=== PATIENT | female | born 1955 | race Hispanic/Latino ===

== ENCOUNTER 2024-07-15 06:08 | Observation (INO) | payer MEDICARE ==
[2024-07-14 09:52] LABS: BASOPHILS # (AUTO) 0.1 (0.0-0.1); BASOPHILS % 0.9 % (0.0-1.0); EOSINOPHILS # (AUTO) 0.2 (0.0-0.4); EOSINOPHILS % 3.1 % (0.0-6.0); HEMATOCRIT 41.7 % (34.2-44.1); HEMOGLOBIN 11.5 g/dL (12.0-16.0); LYMPHOCYTES # (AUTO) 1.3 (1.0-3.2); LYMPHOCYTES % 19.3 % (18.0-39.1); MEAN CORPUSCULAR HEMOGLOBIN 26.6 pg (28-32); MEAN CORPUSCULAR HGB CONC 27.6 g/dL (31-35); MEAN CORPUSCULAR VOLUME 96.3 fL (81-99); MONOCYTES # (AUTO) 0.4 (0.2-0.8); MONOCYTES % 6.1 % (4.4-11.3); NEUTROPHILS # (AUTO) 4.8 (2.1-6.9); NEUTROPHILS % 70.2 % (38.7-80.0); PLATELET COUNT 311 x10e3/uL (140-360); RED BLOOD COUNT 4.33 x10e6/uL (3.6-5.1); RED CELL DISTRIBUTION WIDTH 15.5 % (11.7-14.4); WHITE BLOOD COUNT 6.88 x10e3/uL (4.8-10.8)
[~2024-07-15] VITALS: Ht 162.6 cm; Wt 88.5 kg
[~2024-07-15 06:08] MED LIST: ACETAMINOPHEN120 MG RC; ASPIRIN81 MG PO; FLECTOR1 EACH TD; IRON; OMEPRAZOLE40 MG PO; SPIRONOLACTONE25 MG PO
[2024-07-15] MEDS: CEFAZOLIN SODIUM 2 GM ONE (06:48)
[2024-07-15] MEDS: CELECOXIB 200 MG CAP ONE (06:48)
[2024-07-15] MEDS: GABAPENTIN 300 MG CAP ONE (06:48)
[2024-07-15] MEDS: LACTATED RINGER'S 1,000 ML ONE (06:48)
[2024-07-15] MEDS: DEXAMETHASONE SOD PHOS 10 MG/1 ML VIAL ONE (06:48)
[2024-07-15] MEDS ORDERED: TRANEXAMIC ACID 20 ML ONE (08:06)
[2024-07-15] MEDS ORDERED: Vancomycin IV 500 MG ONE (08:06)
[2024-07-15] MEDS ORDERED: SODIUM CHLORIDE 0.9% 500ML 500 ML ONE (08:06)
[2024-07-15] MEDS ORDERED: DIPHENHYDRAMINE HCL INJ 50 MG/ML VIAL IV PRN (10:00)
[2024-07-15] MEDS ORDERED: ONDANSETRON HCL INJ 2MG/ML 2ML 2 MG/ML VIAL IV PRN (10:00)
[2024-07-15] MEDS ORDERED: DOCUSATE SODIUM 100 MG CAP PO PRN (10:00)
[2024-07-15] MEDS ORDERED: FLUMAZENIL 0.5MG/ 5ML VIAL ONE (11:18)
[2024-07-15] MEDS: ALBUTEROL/IPRATROPIUM 3 ML NEB ONE (11:42)
[2024-07-15] MEDS ORDERED: MIDAZOLAM HCL 2 MG/2 ML VIAL ONE (12:55)
[2024-07-15] MEDS ORDERED: FENTANYL CITRATE/PF 100MCG/2 ML INJ ONE ×2 (12:55→13:03)
[2024-07-15 14:21] VITALS: BP 112/60; PULSE 76; RESP 20; TEMP 97.3; O2SAT 97
[2024-07-15 16:11] VITALS: BP 112/60; PULSE 76; RESP 20; TEMP 97.3; O2SAT 97
[2024-07-15 16:22] LABS: BASOPHILS % 0.1 % (0.0-1.0); HEMATOCRIT 31.6 % (34.2-44.1); HEMOGLOBIN 9.1 g/dL (12.0-16.0); LYMPHOCYTES # (AUTO) 0.6 (1.0-3.2); LYMPHOCYTES % 4.6 % (18.0-39.1); MEAN CORPUSCULAR HEMOGLOBIN 26.6 pg (28-32); MEAN CORPUSCULAR HGB CONC 28.8 g/dL (31-35); MEAN CORPUSCULAR VOLUME 92.4 fL (81-99); MONOCYTES # (AUTO) 0.1 (0.2-0.8); MONOCYTES % 0.8 % (4.4-11.3); NEUTROPHILS # (AUTO) 12.8 (2.1-6.9); NEUTROPHILS % 93.8 % (38.7-80.0); PLATELET COUNT 337 x10e3/uL (140-360); RED BLOOD COUNT 3.42 x10e6/uL (3.6-5.1); RED CELL DISTRIBUTION WIDTH 14.9 % (11.7-14.4); WHITE BLOOD COUNT 13.61 x10e3/uL (4.8-10.8)
[2024-07-15 16:47] LABS: ANION GAP 14.6 mmol/L (8-16); CALCIUM 8.6 mg/dL (8.4-10.2); CREATININE, SERUM 0.8 mg/dL (0.57-1.11); POTASSIUM 4.6 mmol/L (3.5-5.1)
[2024-07-15] MEDS: SODIUM CHLORIDE 0.9% 1000ML 1,000 ML IV SCH (16:53)
[2024-07-15] MEDS: ASPIRIN 325 MG TAB PO SCH (16:53)
[2024-07-15] MEDS: CELECOXIB 200 MG CAP PO SCH (16:53)
[2024-07-15] MEDS ORDERED: ONDANSETRON HCL INJ 2MG/ML 2ML 2 MG/ML VIAL ONE (17:36)
[2024-07-15] MEDS ORDERED: SEVOFLURANE INHAL SOLN 250 ML PEN BTL ONE (17:36)
[2024-07-15] MEDS ORDERED: PROPOFOL IV EMULSION 10 MG/ML 20 ML VIAL ONE (17:36)
[2024-07-15] MEDS ORDERED: ROCURONIUM BROMIDE 10 MG/ML 5ML VIAL IV ONE (17:36)
[2024-07-15] MEDS ORDERED: SUCCINYLCHOLINE CHLORIDE 20 MG/ML 10ML VIAL ONE (17:36)
[2024-07-15] MEDS ORDERED: DEXAMETHASONE SOD PHOS INJ 4 MG/ML SDV ONE (17:36)
[2024-07-15] MEDS ORDERED: LIDOCAINE HCL 2% LOCAL INJ 5 ML SDV VIAL INJ ONE (17:36)
[2024-07-15] MEDS ORDERED: EPINEPHRINE HCL 1:1000 1ML 1 MG/ML AMP ONE (17:57)
[2024-07-15] MEDS ORDERED: ROPIVACAINE 0.5% 5 MG/ML 30 ML SDV ONE (17:57)
[2024-07-15] MEDS: ACETAMINOPHEN 1000 MG/100 ML IV PRN (19:11)
[2024-07-15 20:00] VITALS: BP 110/65; PULSE 84; RESP 20; TEMP 98.4; O2SAT 100
[2024-07-15] MEDS: NALOXONE HCL INJ 0.4 MG/ML AMP ONE (20:02)
[2024-07-15] MEDS: ROPIVACAINE 246.25 MG, EPINEPHRINE HCL 1:1000 1ML 0.5 MG, CLONIDINE HCL 0.08 MG, KETORO... INJ ONE (20:02)
[2024-07-16] VITALS: BP_SYST 137; BP_SYST 97; BP_DIAS 54; BP_DIAS 78; PULSE 105; PULSE 94; RESP 16; RESP 19; TEMP 98.7; TEMP 98.9; O2SAT 100; O2SAT 99
[2024-07-16 05:59] VITALS: BP 117/61; PULSE 84; RESP 18; TEMP 98.6; O2SAT 100
[2024-07-16 06:00] LABS: HEMATOCRIT 27.5 % (34.2-44.1)
[2024-07-16 08:29] VITALS: BP 121/66; PULSE 73; RESP 17; TEMP 98; O2SAT 100
[2024-07-16] MEDS: HYDROCODONE/APAP 5MG-325MG TAB PO PRN (09:23)
[2024-07-16] MEDS: SPIRONOLACTONE 25 MG TAB PO SCH (09:23)
[2024-07-16] MEDS: PANTOPRAZOLE SOD 40 MG TABEC PO SCH (09:23)
[2024-07-16] MEDS: ASPIRIN 81 MG CHEW TAB PO SCH (09:30)
[2024-07-16 12:08] VITALS: BP 105/54; PULSE 86; RESP 17; TEMP 98.5; O2SAT 93
[2024-07-16] MEDS: HYDROCODONE/APAP 7.5MG-325MG 1 EA TAB PO PRN (13:04)
[2024-07-16] MEDS ORDERED: ASPIRIN81 MG PO (13:29)
== END 2024-07-16 15:00 | disposition home health service (06) ==
LOC: OR 06:08 → PACU V 12:22 → MED/SURG3 14:27
PROVIDERS: ADMIT Specialist; ATTEND Specialist
DX: M17.11 Unilateral primary osteoarthritis, right knee (principal); K21.9 Gastro-esophageal reflux disease without esophagitis; E66.01 Morbid (severe) obesity due to excess calories; Z68.33 Body mass index [BMI] 33.0-33.9, adult; D64.9 Anemia, unspecified; R94.31 Abnormal electrocardiogram [ECG] [EKG]; Z01.812 Encounter for preprocedural laboratory examination; Z01.810 Encounter for preprocedural cardiovascular examination; Z79.899 Other long term (current) drug therapy; Z79.82 Long term (current) use of aspirin
CPT/HCPCS: 27447; 36415 ×3; 71045; 73560; 80048; 85014; 85018; 85025 ×2; 86850; 86900; 93005; 96361 ×2; 97116; 97161; 97530 ×2; C1713 ×2; C1776 ×3; G0378 ×2; J0131; J0171; J0330; J0690 ×2; J1100 ×2; J1885; J2001; J2250; J2310; J2405; J2704; J2795; J3010; J3370; J7030; J7040; J7121; S0164

== ENCOUNTER 2024-12-02 08:11 | Observation (INO) | payer MEDICARE ==
[2024-12-01 12:25] LABS: BASOPHILS # (AUTO) 0.1 (0.0-0.1); BASOPHILS % 1.2 % (0.0-1.0); EOSINOPHILS # (AUTO) 0.3 (0.0-0.4); EOSINOPHILS % 4.1 % (0.0-6.0); HEMATOCRIT 36.2 % (34.2-44.1); HEMOGLOBIN 10.8 g/dL (12.0-16.0); LYMPHOCYTES # (AUTO) 0.9 (1.0-3.2); LYMPHOCYTES % 13.7 % (18.0-39.1); MEAN CORPUSCULAR HEMOGLOBIN 28.1 pg (28-32); MEAN CORPUSCULAR HGB CONC 29.8 g/dL (31-35); MEAN CORPUSCULAR VOLUME 94.3 fL (81-99); MONOCYTES # (AUTO) 0.4 (0.2-0.8); MONOCYTES % 6.3 % (4.4-11.3); NEUTROPHILS # (AUTO) 5.1 (2.1-6.9); NEUTROPHILS % 74.3 % (38.7-80.0); PLATELET COUNT 356 x10e3/uL (140-360); RED BLOOD COUNT 3.84 x10e6/uL (3.6-5.1); RED CELL DISTRIBUTION WIDTH 13.4 % (11.7-14.4); WHITE BLOOD COUNT 6.81 x10e3/uL (4.8-10.8)
[2024-12-01 13:04] LABS: ANION GAP 14.8 mmol/L (8-16); CALCIUM 9.2 mg/dL (8.4-10.2); CREATININE, SERUM 0.74 mg/dL (0.57-1.11); POTASSIUM 4.8 mmol/L (3.5-5.1)
[~2024-12-02] VITALS: Ht 160 cm; Wt 87.3 kg
[~2024-12-02 08:11] MED LIST changes: +FERROUS SULFAT325 MG PO; +ROPIVACAINE 123 MG, EPINEPHRINE HCL 1:1000 1ML 0.25 MG, CLONIDINE HCL 0.04 MG, KETOROLA... INJ ONE; +ROPIVACAINE/EPI/CLONIDINE/KET 50 ML SYRINGE INJ ONE
[2024-12-02] MEDS: DEXAMETHASONE SOD PHOS 10 MG/1 ML VIAL ONE (08:38)
[2024-12-02] MEDS: CEFAZOLIN SODIUM 2 GM ONE (08:39)
[2024-12-02] MEDS: LACTATED RINGER'S 1,000 ML ONE (08:39)
[2024-12-02] MEDS: CELECOXIB 200 MG CAP ONE (08:40)
[2024-12-02] MEDS: GABAPENTIN 300 MG CAP ONE (08:41)
[2024-12-02] MEDS ORDERED: SEVOFLURANE INHAL SOLN 250 ML PEN BTL ONE (10:11)
[2024-12-02] MEDS ORDERED: FENTANYL CITRATE/PF 100MCG/2 ML INJ ONE (10:11)
[2024-12-02] MEDS ORDERED: ACETAMINOPHEN 1000 MG/100 ML 100 ML IV ONE (10:12)
[2024-12-02] MEDS ORDERED: PROPOFOL IV EMULSION 10 MG/ML 20 ML VIAL ONE ×2 (10:12→11:44)
[2024-12-02] MEDS ORDERED: FAMOTIDINE 20 MG/2 ML VIAL IV ONE (12:12)
[2024-12-02] MEDS ORDERED: ONDANSETRON HCL INJ 2MG/ML 2ML 2 MG/ML VIAL ONE (12:12)
[2024-12-02] MEDS ORDERED: ONDANSETRON HCL INJ 2MG/ML 2ML 2 MG/ML VIAL IV PRN (12:45)
[2024-12-02] MEDS ORDERED: ACETAMINOPHEN 650 MG SUPP PR PRN (12:45)
[2024-12-02] MEDS ORDERED: DIPHENHYDRAMINE HCL INJ 50 MG/ML VIAL IV PRN (12:45)
[2024-12-02] MEDS ORDERED: DOCUSATE SODIUM 100 MG CAP PO PRN (12:45)
[2024-12-02] MEDS ORDERED: HYDROCODONE/APAP 7.5MG-325MG 1 EA TAB PO PRN (12:45)
[2024-12-02] MEDS: CELECOXIB 100 MG CAP PO SCH (17:00)
[2024-12-02] MEDS: ASPIRIN 325 MG TAB PO SCH (17:00)
[2024-12-02 17:23] VITALS: BP 111/62; PULSE 85; RESP 20; TEMP 97.5; O2SAT 100
[2024-12-02] MEDS: ROPIVACAINE/EPI/CLONIDINE/KET 50 ML SYRINGE INJ ONE ×2 (18:02)
[2024-12-02] MEDS: HYDROCODONE/APAP 7.5MG-325MG 1 EA TAB ONE (18:02)
[2024-12-02 18:05] VITALS: BP 111/62; PULSE 85; RESP 20; TEMP 97.5; O2SAT 100
[2024-12-02 18:15] VITALS: BP 111/62; PULSE 85; RESP 20; TEMP 97.5; O2SAT 100
[2024-12-02] MEDS: SODIUM CHLORIDE 0.9% 1000ML 1,000 ML IV SCH (18:54)
[2024-12-02 19:40] VITALS: PULSE 87; RESP 20; O2SAT 98
[2024-12-02 20:00] VITALS: BP 116/74; PULSE 99; RESP 18; TEMP 98.1; O2SAT 92
[2024-12-03] VITALS: BP 118/70; PULSE 63; RESP 18; TEMP 97.6; O2SAT 92
[2024-12-03 04:00] VITALS: BP 112/77; PULSE 93; RESP 18; TEMP 98; O2SAT 97
[2024-12-03] MEDS: HYDROCODONE/APAP 5MG-325MG TAB PO PRN (04:20)
[2024-12-03 06:58] LABS: HEMATOCRIT 30.5 % (34.2-44.1)
[2024-12-03 07:08] VITALS: PULSE 75; RESP 18; O2SAT 98
[2024-12-03 07:23] LABS: ANION GAP 13.6 mmol/L (8-16); CALCIUM 8.5 mg/dL (8.4-10.2); CREATININE, SERUM 0.78 mg/dL (0.57-1.11); POTASSIUM 4.6 mmol/L (3.5-5.1)
[2024-12-03 07:51] VITALS: BP 103/56; PULSE 74; RESP 19; TEMP 97.9; O2SAT 98
[2024-12-03 08:28] VITALS: BP 103/56; PULSE 74; RESP 19; TEMP 97.9; O2SAT 98
[2024-12-03 11:24] VITALS: BP 112/58; PULSE 88; RESP 17; TEMP 97.9; O2SAT 98
[2024-12-03] MEDS ORDERED: ACETAMINOPHEN 1000 MG/100 ML IV PRN (12:45)
== END 2024-12-03 15:06 | disposition home health service (06) ==
LOC: OR 08:11 → PACU V 12:41 → MED/SURG3 18:38
PROVIDERS: ADMIT Specialist; ATTEND Specialist
DX: M17.12 Unilateral primary osteoarthritis, left knee (principal); Z96.651 Presence of right artificial knee joint; I10 Essential (primary) hypertension; K21.9 Gastro-esophageal reflux disease without esophagitis; D64.9 Anemia, unspecified; Z01.812 Encounter for preprocedural laboratory examination; Z01.810 Encounter for preprocedural cardiovascular examination; Z79.899 Other long term (current) drug therapy
CPT/HCPCS: 27447; 36415 ×2; 73560; 80048 ×2; 85014; 85018; 85025; 86850; 86900; 93005; 94799 ×2; 97116; 97162; 97530 ×2; C1713 ×2; C1776 ×4; G0378 ×2; J0131; J0690 ×2; J1100; J2405; J2704; J3010; J7030 ×2; J7121; J0171; J1885; J2795